=== PATIENT | female | born 1950 | race Caucasian/White ===

== ENCOUNTER 2022-06-12 15:25 | Inpatient (IN) | payer OTHER ==
[2022-06-12 16:39] VITALS: BMI 18.1
[2022-06-12 18:40] LABS: VENOUS BASE EXCESS 4.8 mmol/L (-2-2); VENOUS O2 SATURATION 82.8 % (70-80); VENOUS PCO2 42.6 mmHg (38-52); VENOUS PH 7.456 (7.310-7.410)
[2022-06-12 18:53] LABS: BASO % 0.2 % (0-2.0); EOS % 0.3 % (0-4.5); HEMATOCRIT 33.3 % (32.4-45.2); HEMOGLOBIN 10.9 GM/dL (10.7-15.3); LYMPH % 5.7 % (8-40); MCH 29.2 pg (25.7-33.7); MCHC 32.7 g/dl (32.0-36.0); MEAN CELL VOLUME 89.4 fl (80-96); MEAN PLT VOLUME 8.7 fl (7.5-11.1); MONO % 5.5 % (3.8-10.2); NEUT % 88.3 % (42.8-82.8); PLATELET COUNT 330 10^3/uL (134-434); RBC 3.72 M/mm3 (3.60-5.2); RDW 15.7 % (11.6-15.6); WHITE BLOOD COUNT 16.3 K/mm3 (4.0-10.0)
[2022-06-12 18:59] LABS: INR 1.2 (0.83-1.09); PROTHROMBIN TIME (PATIENT) 13.8 SEC (9.7-13.0)
[2022-06-12 19:02] LABS: ACTIVATED PTT 27.2 SECONDS (25.2-36.5)
[2022-06-12 19:13] LABS: CALCIUM 9.5 mg/dL (8.5-10.1)
[2022-06-12 19:14] LABS: ALBUMIN 1.7 g/dl (3.4-5.0); BLOOD UREA NITROGEN 18.8 mg/dL (7-18)
[2022-06-12 19:17] LABS: BILIRUBIN,TOTAL 0.3 mg/dL (0.2-1); CREATININE 0.3 mg/dL (0.55-1.3)
[2022-06-12] MEDS ORDERED: LACTATED RINGERS SOLUTION 1000 ML INFUS.BAG IV ONE (19:17)
[2022-06-12] MEDS ORDERED: ACETAMINOPHEN 1000 MG/100 ML BAG IVPB ONE (19:17)
[2022-06-12 19:19] LABS: TOT PROT 6.3 g/dl (6.4-8.2)
[2022-06-12] MEDS ORDERED: VANCOMYCIN 1 GM in D5W (PRE-DOCKED) 1,000 MG/250 ML IVPB ONE (19:29)
[2022-06-12 19:30] LABS: ANISOCYTOSIS 2+; MACROCYTOSIS 0
[2022-06-12] MEDS ORDERED: CEFEPIME HCL/D5W 1 GM/50 ML BAG IVPB ONE (19:30)
[2022-06-12 19:53] LABS: LACTIC ACID 2.4 mmol/L (0.4-2.0)
[2022-06-12] MEDS ORDERED: ACETAMINOPHEN INJECTION 100 ML IVPB ONE (20:16)
[2022-06-12] MEDS ORDERED: VANCOMYCIN/WATER FOR INJ (PEG) 1,000 MG/200 ML BAG IVPB ONE (20:50)
[2022-06-12] MEDS ORDERED: CEFEPIME 1 GM/100 ML BAG IVPB ONE (20:51)
[2022-06-13] MEDS ORDERED: VANCOMYCIN/WATER FOR INJ (PEG) 1,000 MG/200 ML BAG IVPB SCH ×2 (01:00→08:00)
[2022-06-13] MEDS: SODIUM CHLORIDE 1,000 ML IV SCH ×2 (02:30→13:34)
[2022-06-13] MEDS ORDERED: MEROPENEM 1 GM VIAL (RESTRICTED TO ID) IVPB ONE (05:43)
[2022-06-13] MEDS: MEROPENEM 1 GM in DEXTROSE 5%-WATER 100 ML IVPB SCH ×3 (05:59→17:37)
[2022-06-13 07:36] LABS: HEMATOCRIT 33.3 % (32.4-45.2); MCH 29.5 pg (25.7-33.7); MCHC 33.1 g/dl (32.0-36.0); MEAN CELL VOLUME 89.2 fl (80-96); MEAN PLT VOLUME 8.4 fl (7.5-11.1); PLATELET COUNT 318 10^3/uL (134-434); RBC 3.73 M/mm3 (3.60-5.2); RDW 15.7 % (11.6-15.6)
[2022-06-13 07:45] LABS: CHLORIDE 102 mmol/L (98-107); SODIUM 139 mmol/L (136-145)
[2022-06-13 07:48] LABS: CALCIUM 9.5 mg/dL (8.5-10.1)
[2022-06-13 07:49] LABS: ALBUMIN 1.6 g/dl (3.4-5.0); ANION GAP 6 MMOL/L (8-16); BLOOD UREA NITROGEN 14.4 mg/dL (7-18); CO2 31 mmol/L (21-32); GLUCOSE,RANDOM 115 mg/dL (74-106); MAGNESIUM 2.2 mg/dL (1.8-2.4)
[2022-06-13 07:51] LABS: SGPT/ALT 50 U/L (13-61)
[2022-06-13 07:52] LABS: CREATININE < 0.2 mg/dL (0.55-1.3); PHOSPHOROUS 5.3 mg/dL (2.5-4.9); SGOT/AST 49 U/L (15-37)
[2022-06-13 07:53] LABS: BILIRUBIN,TOTAL 0.4 mg/dL (0.2-1); TOT PROT 5.9 g/dl (6.4-8.2)
[2022-06-13 07:55] LABS: ALK PHOS 201 U/L (45-117)
[2022-06-13] MEDS ORDERED: VANCOMYCIN/WATER FOR INJ (PEG) 1,000 MG/200 ML BAG IVPB ONE (08:12)
[2022-06-13 08:35] LABS: EPI CELLS 31 /uL (0-25.1); HYALINE CASTS 1 /uL (0-3.1); URINE APPEARANCE CLEAR; URINE BACTERIA 195 /uL (0-1359); URINE BILIRUBIN NEGATIVE (NEGATIVE); URINE COLOR YELLOW; URINE GLUCOSE (UA) NEGATIVE (NEGATIVE); URINE KETONE NEGATIVE (NEGATIVE); URINE LEUK ESTERASE 1+ (NEGATIVE); URINE NITRITE NEGATIVE (NEGATIVE); URINE PROTEIN NEGATIVE (NEGATIVE); URINE RBC 11 /uL (0-23.9); URINE UROBILINOGEN 0.2 mg/dL (0.2-1.0); URINE WBC 43 /uL (0-25.8)
[2022-06-13 09:26] LABS: ANISOCYTOSIS 0; HELMET CELLS 0; HOWELL-JOLLY BODIES 0; MACROCYTOSIS 0; OVALOCYTE 0; ROULEAU 0; SICKELED CELLS 0; TARGET CELLS 0; TEAR DROP CELLS 0; TOXIC GRANULATION 0
[2022-06-13] MEDS ORDERED: levETIRAcetam 500 MG TABLET (FP) PO SCH (10:00)
[2022-06-13] MEDS ORDERED: DOCUSATE SODIUM 100 MG CAPSULE (FP) PO SCH (10:00)
[2022-06-13] MEDS ORDERED: [UNRECOGNIZED DRUG - OTHER] GT SCH (10:00)
[2022-06-13] MEDS: SENNOSIDES 8.8 MG/5 ML BULK BOTTLE GT SCH ×2 (10:23→21:43)
[2022-06-13] MEDS ORDERED: FAMOTIDINE 20 MG TABLET ONE (10:25)
[2022-06-13] MEDS ORDERED: levETIRAcetam 500 MG TABLET (FP) PO ONE (10:25)
[2022-06-13] MEDS ORDERED: ASCORBIC ACID 500 MG TABLET (FP) ONE (10:26)
[2022-06-13] MEDS ORDERED: ENOXAPARIN NA (PORCINE) 40 MG/0.4 ML DISP.SYRIN SQ ONE (10:26)
[2022-06-13] MEDS: FAMOTIDINE 20 MG TABLET PEG SCH ×2 (10:29→21:43)
[2022-06-13] MEDS: ENOXAPARIN NA (PORCINE) 40 MG/0.4 ML DISP.SYRIN SQ SCH (10:29)
[2022-06-13] MEDS: ASCORBIC ACID 500 MG TABLET (FP) GT SCH (10:30)
[2022-06-13] MEDS ORDERED: ACETAMINOPHEN 1000 MG/100 ML BAG IVPB ONE ×2 (12:00→13:30)
[2022-06-13] MEDS: CYANOCOBALAMIN 1,000 MCG TABLET (FP) GT SCH (13:25)
[2022-06-13] MEDS: LACTOBACILLUS ACIDOPHILUS 1 TABLET GT SCH (13:36)
[2022-06-13] MEDS: VANCOMYCIN/WATER FOR INJ (PEG) 1,000 MG/200 ML BAG IVPB SCH (20:42)
[2022-06-13] MEDS ORDERED: ZINC SULFATE 220 MG CAPSULE (FP) PO ONE (21:00)
[2022-06-13] MEDS: DOCUSATE NA 100 MG/10 ML UNIT-DOSE CUPS PO SCH (21:43)
[2022-06-14] MEDS: SODIUM CHLORIDE 1,000 ML IV SCH ×2 (01:12→15:27)
[2022-06-14] MEDS: MEROPENEM 1 GM in DEXTROSE 5%-WATER 100 ML IVPB SCH ×3 (01:13→18:51)
[2022-06-14] MEDS: AMINO ACIDS/PROTEIN HYDROLYS 30 ML LIQUID.PKT PO SCH (08:59)
[2022-06-14] MEDS: VANCOMYCIN/WATER FOR INJ (PEG) 1,000 MG/200 ML BAG IVPB SCH ×2 (08:59→21:07)
[2022-06-14] MEDS: MULTIVITAMINS (DAILY MVI) TABLET (FP) PO SCH (09:05)
[2022-06-14] MEDS: LACTOBACILLUS ACIDOPHILUS 1 TABLET GT SCH (09:05)
[2022-06-14] MEDS: FAMOTIDINE 20 MG TABLET PEG SCH ×2 (09:05→21:06)
[2022-06-14] MEDS: ASCORBIC ACID 500 MG TABLET (FP) GT SCH (09:05)
[2022-06-14] MEDS: DOCUSATE NA 100 MG/10 ML UNIT-DOSE CUPS PO SCH ×2 (09:06→21:06)
[2022-06-14] MEDS: SENNOSIDES 8.8 MG/5 ML BULK BOTTLE GT SCH ×2 (09:06→21:06)
[2022-06-14] MEDS: ENOXAPARIN NA (PORCINE) 40 MG/0.4 ML DISP.SYRIN SQ SCH (09:06)
[2022-06-14] MEDS: levETIRAcetam 500 MG/5 ML ORAL SOLUTION (UNIT-DOSE CUPS) PO SCH (09:06)
[2022-06-14] MEDS: CYANOCOBALAMIN 1,000 MCG TABLET (FP) GT SCH (09:08)
[2022-06-14 11:33] LABS: HEMATOCRIT 30.5 % (32.4-45.2); HEMOGLOBIN 9.8 GM/dL (10.7-15.3); MCH 28.9 pg (25.7-33.7); MCHC 32.2 g/dl (32.0-36.0); MEAN CELL VOLUME 89.8 fl (80-96); MEAN PLT VOLUME 8.5 fl (7.5-11.1); PLATELET COUNT 325 10^3/uL (134-434); RBC 3.39 M/mm3 (3.60-5.2); RDW 15.7 % (11.6-15.6); WHITE BLOOD COUNT 11.7 K/mm3 (4.0-10.0)
[2022-06-14 11:53] LABS: CALCIUM 8.9 mg/dL (8.5-10.1)
[2022-06-14 11:54] LABS: ALBUMIN 1.4 g/dl (3.4-5.0)
[2022-06-14 11:57] LABS: CREATININE 0.2 mg/dL (0.55-1.3)
[2022-06-14 11:58] LABS: BILIRUBIN,TOTAL 0.5 mg/dL (0.2-1); TOT PROT 5.4 g/dl (6.4-8.2)
[2022-06-14] MEDS ORDERED: ACETAMINOPHEN 1000 MG/100 ML BAG IVPB ONE (15:27)
[2022-06-15] MEDS: MEROPENEM 1 GM in DEXTROSE 5%-WATER 100 ML IVPB SCH ×3 (01:23→18:26)
[2022-06-15] MEDS: SODIUM CHLORIDE 1,000 ML IV SCH ×3 (01:24→16:15)
[2022-06-15] MEDS ORDERED: ACETAMINOPHEN 1000 MG/100 ML BAG IVPB ONE (08:15)
[2022-06-15] MEDS: AMINO ACIDS/PROTEIN HYDROLYS 30 ML LIQUID.PKT PO SCH (09:22)
[2022-06-15 10:34] LABS: HEMATOCRIT 28.7 % (32.4-45.2); HEMOGLOBIN 9.4 GM/dL (10.7-15.3); MCH 29.6 pg (25.7-33.7); MCHC 32.9 g/dl (32.0-36.0); MEAN CELL VOLUME 89.9 fl (80-96); MEAN PLT VOLUME 7.7 fl (7.5-11.1); PLATELET COUNT 308 10^3/uL (134-434); RBC 3.19 M/mm3 (3.60-5.2); WHITE BLOOD COUNT 13.9 K/mm3 (4.0-10.0)
[2022-06-15 11:05] LABS: CHLORIDE 104 mmol/L (98-107); SODIUM 141 mmol/L (136-145)
[2022-06-15 11:12] LABS: ALBUMIN 1.4 g/dl (3.4-5.0); BLOOD UREA NITROGEN 12.1 mg/dL (7-18); CALCIUM 8.5 mg/dL (8.5-10.1); CO2 27 mmol/L (21-32); GLUCOSE,RANDOM 131 mg/dL (74-106)
[2022-06-15 11:15] LABS: CREATININE 0.3 mg/dL (0.55-1.3); SGPT/ALT 30 U/L (13-61)
[2022-06-15 11:16] LABS: SGOT/AST 38 U/L (15-37)
[2022-06-15 11:17] LABS: BILIRUBIN,TOTAL 0.2 mg/dL (0.2-1); TOT PROT 5.2 g/dl (6.4-8.2)
[2022-06-15 11:18] LABS: ALK PHOS 169 U/L (45-117)
[2022-06-15 11:20] LABS: ANION GAP 10 MMOL/L (8-16)
[2022-06-15] MEDS: DOCUSATE NA 100 MG/10 ML UNIT-DOSE CUPS PO SCH ×2 (11:36→11:42)
[2022-06-15] MEDS: ENOXAPARIN NA (PORCINE) 40 MG/0.4 ML DISP.SYRIN SQ SCH (11:37)
[2022-06-15] MEDS: POTASSIUM CHLORIDE ORAL LIQUID 20 MEQ/15 ML GT SCH (11:37)
[2022-06-15] MEDS: MULTIVITAMINS (DAILY MVI) TABLET (FP) PO SCH (11:38)
[2022-06-15] MEDS: FAMOTIDINE 20 MG TABLET PEG SCH ×2 (11:38→21:01)
[2022-06-15] MEDS: LACTOBACILLUS ACIDOPHILUS 1 TABLET GT SCH (11:38)
[2022-06-15] MEDS: levETIRAcetam 500 MG/5 ML ORAL SOLUTION (UNIT-DOSE CUPS) PO SCH (11:43)
[2022-06-15] MEDS: ASCORBIC ACID 500 MG TABLET (FP) GT SCH (11:43)
[2022-06-15] MEDS: SENNOSIDES 8.8 MG/5 ML BULK BOTTLE GT SCH ×2 (11:43→21:27)
[2022-06-15] MEDS: VANCOMYCIN/WATER FOR INJ (PEG) 1,000 MG/200 ML BAG IVPB SCH ×2 (12:22→19:51)
[2022-06-15] MEDS: CYANOCOBALAMIN 1,000 MCG TABLET (FP) GT SCH (12:22)
[2022-06-15] MEDS ORDERED: POTASSIUM CHLORIDE ORAL LIQUID 20 MEQ/15 ML PO ONE (12:57)
[2022-06-15] MEDS ORDERED: POTASSIUM CHLORIDE ORAL LIQUID 20 MEQ/15 ML GT ONE ×2 (13:03→16:54)
[2022-06-15] MEDS: KCL 10 MEQ IVPB 10 MEQ/100 ML INFUS.BAG IVPB SCH ×3 (13:52→16:07)
[2022-06-15 16:45] LABS: CHLORIDE 113 mmol/L (98-107); SODIUM 143 mmol/L (136-145)
[2022-06-15 16:48] LABS: ANION GAP 9 MMOL/L (8-16); BLOOD UREA NITROGEN 9.3 mg/dL (7-18); CO2 22 mmol/L (21-32); GLUCOSE,RANDOM 94 mg/dL (74-106); MAGNESIUM 1.7 mg/dL (1.8-2.4)
[2022-06-15 17:01] LABS: CALCIUM 7.1 mg/dL (8.5-10.1); CREATININE < 0.2 mg/dL (0.55-1.3)
[2022-06-15] MEDS ORDERED: MAGNESIUM SULF 50% (8.12 MEQ/2 ML-1 GM VIAL) IVPB ONE (18:07)
[2022-06-15] MEDS: ACETAMINOPHEN 650 MG/20.3 ML ORAL SOLUTION (CUPS) GT PRN (21:00)
[2022-06-15] MEDS: DOCUSATE NA 100 MG/10 ML UNIT-DOSE CUPS GT SCH (21:27)
[2022-06-16] MEDS: MEROPENEM 1 GM in DEXTROSE 5%-WATER 100 ML IVPB SCH ×2 (02:07→09:30)
[2022-06-16] MEDS: ACETAMINOPHEN 650 MG/20.3 ML ORAL SOLUTION (CUPS) GT PRN ×2 (03:42→21:31)
[2022-06-16] MEDS: SENNOSIDES 8.8 MG/5 ML BULK BOTTLE GT SCH ×2 (09:25→21:24)
[2022-06-16] MEDS: DOCUSATE NA 100 MG/10 ML UNIT-DOSE CUPS GT SCH ×2 (09:26→21:24)
[2022-06-16] MEDS: levETIRAcetam 500 MG/5 ML ORAL SOLUTION (UNIT-DOSE CUPS) GT SCH (09:26)
[2022-06-16] MEDS: MULTIVITAMINS (DAILY MVI) TABLET (FP) PO SCH (09:27)
[2022-06-16] MEDS: AMINO ACIDS/PROTEIN HYDROLYS 30 ML LIQUID.PKT GT SCH (09:27)
[2022-06-16] MEDS: ASCORBIC ACID 500 MG TABLET (FP) GT SCH (09:27)
[2022-06-16] MEDS: FAMOTIDINE 20 MG TABLET PEG SCH ×2 (09:27→21:32)
[2022-06-16] MEDS: LACTOBACILLUS ACIDOPHILUS 1 TABLET GT SCH (09:27)
[2022-06-16] MEDS: VANCOMYCIN/WATER FOR INJ (PEG) 1,000 MG/200 ML BAG IVPB SCH ×2 (09:30→21:23)
[2022-06-16] MEDS ORDERED: COLLAGENASE CLOSTRIDIUM HIST. 30 GRAMS TUBE TP SCH (10:00)
[2022-06-16] MEDS: COLLAGENASE CLOSTRIDIUM HIST. 30 GRAMS TUBE TP SCH (10:00)
[2022-06-16] MEDS: POTASSIUM CHLORIDE ORAL LIQUID 20 MEQ/15 ML GT SCH (10:00)
[2022-06-16] MEDS: CYANOCOBALAMIN 1,000 MCG TABLET (FP) GT SCH (10:00)
[2022-06-16 10:55] LABS: HEMATOCRIT 27.6 % (32.4-45.2); HEMOGLOBIN 9.2 GM/dL (10.7-15.3); MCH 29.8 pg (25.7-33.7); MCHC 33.3 g/dl (32.0-36.0); MEAN CELL VOLUME 89.5 fl (80-96); MEAN PLT VOLUME 7.6 fl (7.5-11.1); PLATELET COUNT 300 10^3/uL (134-434); RBC 3.08 M/mm3 (3.60-5.2); RDW 15.7 % (11.6-15.6); WHITE BLOOD COUNT 13.9 K/mm3 (4.0-10.0)
[2022-06-16 11:11] LABS: ALBUMIN 1.2 g/dl (3.4-5.0); BLOOD UREA NITROGEN 8.8 mg/dL (7-18); MAGNESIUM 1.9 mg/dL (1.8-2.4)
[2022-06-16 11:14] LABS: CREATININE 0.2 mg/dL (0.55-1.3)
[2022-06-16 11:15] LABS: BILIRUBIN,TOTAL 0.2 mg/dL (0.2-1); TOT PROT 4.9 g/dl (6.4-8.2)
[2022-06-16 11:17] LABS: LACTIC ACID 3.3 mmol/L (0.4-2.0)
[2022-06-16 11:17] LABS: CALCIUM 8.4 mg/dL (8.5-10.1)
[2022-06-16] MEDS ORDERED: SODIUM CHLORIDE 1,000 ML IV STA ×2 (14:04→16:10)
[2022-06-16] MEDS ORDERED: POTASSIUM CHLORIDE ORAL LIQUID 20 MEQ/15 ML PO ONE (14:30)
[2022-06-16] MEDS ORDERED: POTASSIUM CHLORIDE ORAL LIQUID 20 MEQ/15 ML GT ONE (15:45)
[2022-06-16] MEDS: CEFEPIME 2 GM in DEXTROSE 5%-WATER 100 ML IVPB SCH ×2 (15:51→18:09)
[2022-06-16] MEDS: SODIUM CHLORIDE 1,000 ML IV SCH (15:52)
[2022-06-16] MEDS ORDERED: SODIUM CHLORIDE 1,000 ML IV SCH ×2 (16:10→18:57)
[2022-06-16] MEDS ORDERED: KETOROLAC TROMETHAMINE 15 MG/ML VIAL IVPUSH ONE (17:04)
[2022-06-17] MEDS: CEFEPIME 2 GM in DEXTROSE 5%-WATER 100 ML IVPB SCH ×3 (01:55→16:59)
[2022-06-17] MEDS: ACETAMINOPHEN 650 MG/20.3 ML ORAL SOLUTION (CUPS) GT PRN (06:25)
[2022-06-17] MEDS ORDERED: POTASSIUM CHLORIDE ORAL LIQUID 20 MEQ/15 ML GT ONE (06:54)
[2022-06-17] MEDS: AMINO ACIDS/PROTEIN HYDROLYS 30 ML LIQUID.PKT GT SCH (07:47)
[2022-06-17] MEDS: VANCOMYCIN/WATER FOR INJ (PEG) 1,000 MG/200 ML BAG IVPB SCH ×2 (07:47→20:30)
[2022-06-17] MEDS ORDERED: SODIUM CHLORIDE 1,000 ML IV SCH (09:00)
[2022-06-17] MEDS ORDERED: KETOROLAC TROMETHAMINE 15 MG/ML VIAL IVPUSH ONE (09:00)
[2022-06-17] MEDS: DOCUSATE NA 100 MG/10 ML UNIT-DOSE CUPS GT SCH ×2 (09:02→21:28)
[2022-06-17] MEDS ORDERED: ACETAMINOPHEN 1000 MG/100 ML BAG IVPB ONE (09:02)
[2022-06-17] MEDS: ASCORBIC ACID 500 MG TABLET (FP) GT SCH (09:07)
[2022-06-17] MEDS: levETIRAcetam 500 MG/5 ML ORAL SOLUTION (UNIT-DOSE CUPS) GT SCH (09:07)
[2022-06-17] MEDS: FAMOTIDINE 20 MG TABLET PEG SCH ×2 (09:07→21:28)
[2022-06-17] MEDS: POTASSIUM CHLORIDE ORAL LIQUID 20 MEQ/15 ML GT SCH (09:08)
[2022-06-17] MEDS: MULTIVITAMINS (DAILY MVI) TABLET (FP) PO SCH (09:08)
[2022-06-17] MEDS: LACTOBACILLUS ACIDOPHILUS 1 TABLET GT SCH (09:08)
[2022-06-17] MEDS: SENNOSIDES 8.8 MG/5 ML BULK BOTTLE GT SCH ×2 (09:08→21:29)
[2022-06-17] MEDS: CYANOCOBALAMIN 1,000 MCG TABLET (FP) GT SCH (09:08)
[2022-06-17] MEDS: COLLAGENASE CLOSTRIDIUM HIST. 30 GRAMS TUBE TP SCH (10:13)
[2022-06-17 10:28] LABS: HEMATOCRIT 28.2 % (32.4-45.2); HEMOGLOBIN 9.4 GM/dL (10.7-15.3); MCH 29.1 pg (25.7-33.7); MCHC 33.2 g/dl (32.0-36.0); MEAN CELL VOLUME 87.7 fl (80-96); MEAN PLT VOLUME 7.7 fl (7.5-11.1); PLATELET COUNT 304 10^3/uL (134-434); RBC 3.21 M/mm3 (3.60-5.2); RDW 15.8 % (11.6-15.6); WHITE BLOOD COUNT 8.2 K/mm3 (4.0-10.0)
[2022-06-17 11:00] LABS: ALBUMIN 1.2 g/dl (3.4-5.0); BLOOD UREA NITROGEN 9.1 mg/dL (7-18); CALCIUM 7.7 mg/dL (8.5-10.1); CREATININE 0.2 mg/dL (0.55-1.3)
[2022-06-17 11:03] LABS: BILIRUBIN,TOTAL 0.3 mg/dL (0.2-1)
[2022-06-17] MEDS ORDERED: LACTATED RINGERS SOLUTION 1000 ML INFUS.BAG IV ONE (13:12)
[2022-06-17] MEDS ORDERED: LORazepam 2 MG/ML SDV VIAL IVPUSH ONE ×2 (17:36→17:43)
[2022-06-17] MEDS ORDERED: PHENYLEPHRINE HCL 10 MG/1 ML SINGLE DOSE VIAL ONE (21:25)
[2022-06-17] MEDS: ACETAMINOPHEN 650 MG/20.3 ML ORAL SOLUTION (CUPS) PEG PRN (23:05)
[2022-06-18] MEDS ORDERED: LACTATED RINGERS SOLUTION 1000 ML INFUS.BAG IV ONE ×2 (00:45→07:13)
[2022-06-18] MEDS: CEFEPIME 2 GM in DEXTROSE 5%-WATER 100 ML IVPB SCH ×3 (01:56→17:41)
[2022-06-18] MEDS: ACETAMINOPHEN 650 MG/20.3 ML ORAL SOLUTION (CUPS) PEG PRN ×3 (05:29→21:01)
[2022-06-18] MEDS: VANCOMYCIN/WATER FOR INJ (PEG) 1,000 MG/200 ML BAG IVPB SCH ×2 (09:15→20:18)
[2022-06-18] MEDS: AMINO ACIDS/PROTEIN HYDROLYS 30 ML LIQUID.PKT GT SCH (09:15)
[2022-06-18] MEDS: levETIRAcetam 500 MG/5 ML ORAL SOLUTION (UNIT-DOSE CUPS) GT SCH (09:18)
[2022-06-18] MEDS: DOCUSATE NA 100 MG/10 ML UNIT-DOSE CUPS GT SCH ×2 (09:18→21:01)
[2022-06-18] MEDS: FAMOTIDINE 20 MG TABLET PEG SCH ×2 (09:19→21:01)
[2022-06-18] MEDS: MULTIVITAMINS (DAILY MVI) TABLET (FP) PO SCH (09:19)
[2022-06-18] MEDS: POTASSIUM CHLORIDE ORAL LIQUID 20 MEQ/15 ML GT SCH (09:19)
[2022-06-18] MEDS: ASCORBIC ACID 500 MG TABLET (FP) GT SCH (09:19)
[2022-06-18] MEDS: LACTOBACILLUS ACIDOPHILUS 1 TABLET GT SCH (09:20)
[2022-06-18] MEDS: SENNOSIDES 8.8 MG/5 ML BULK BOTTLE GT SCH ×2 (09:20→21:01)
[2022-06-18] MEDS: CYANOCOBALAMIN 1,000 MCG TABLET (FP) GT SCH (09:20)
[2022-06-18] MEDS: COLLAGENASE CLOSTRIDIUM HIST. 30 GRAMS TUBE TP SCH (09:20)
[2022-06-18 13:02] LABS: CALCIUM 8.5 mg/dL (8.5-10.1)
[2022-06-18 13:04] LABS: ALBUMIN 1.3 g/dl (3.4-5.0); BLOOD UREA NITROGEN 12.9 mg/dL (7-18); MAGNESIUM 1.7 mg/dL (1.8-2.4)
[2022-06-18 13:06] LABS: CREATININE 0.2 mg/dL (0.55-1.3); PHOSPHOROUS 2.2 mg/dL (2.5-4.9)
[2022-06-18 13:07] LABS: BILIRUBIN,TOTAL 0.2 mg/dL (0.2-1)
[2022-06-18 13:09] LABS: TOT PROT 5.6 g/dl (6.4-8.2)
[2022-06-18] MEDS ORDERED: MAGNESIUM SULF 50% (8.12 MEQ/2 ML-1 GM VIAL) IVPB ONE (14:38)
[2022-06-18] MEDS ORDERED: POTASSIUM PHOSPHATE 30 MM in DEXTROSE 5%-WATER - 250 ML IVPB ONE (15:30)
[2022-06-18] MEDS: KCL 10 MEQ IVPB 10 MEQ/100 ML INFUS.BAG IVPB SCH ×3 (16:55→17:41)
[2022-06-18 20:35] VITALS: RESP 19
[2022-06-18 23:54] VITALS: BP 96/59; PULSE 109; TEMP 99.5
== END 2022-06-19 | disposition short-term general hospital (02) | DRG 871 ==
LOC: JER 15:25 → JERBED 19:23 → J6S 06-13 10:55 → JICU 06-17 13:29
PROVIDERS: ADMIT Internal Medicine; ATTEND Internal Medicine Pulmonary Disease
PROC: 05HM33Z Insertion of Infusion Device into Right Internal Jugular Vein, Percutaneous Approach (ICD-10-PCS; principal; 2022-06-17)
PROC: B543ZZA Ultrasonography of Right Jugular Veins, Guidance (ICD-10-PCS; 2022-06-17)
DX: A41.89 Other specified sepsis (principal); G93.41 Metabolic encephalopathy; J96.21 Acute and chronic respiratory failure with hypoxia; J98.11 Atelectasis; E87.20 Acidosis, unspecified; G91.0 Communicating hydrocephalus; I69.354 Hemiplegia and hemiparesis following cerebral infarction affecting left non-dominant side; R00.0 Tachycardia, unspecified; I10 Essential (primary) hypertension; D72.829 Elevated white blood cell count, unspecified; K59.00 Constipation, unspecified; G40.909 Epilepsy, unspecified, not intractable, without status epilepticus; E87.6 Hypokalemia; R13.10 Dysphagia, unspecified; L89.150 Pressure ulcer of sacral region, unstageable; Z88.0 Allergy status to penicillin; Z93.0 Tracheostomy status; Z93.1 Gastrostomy status
CPT/HCPCS: 0241U-QW; 36415; 70260-TC-FY; 70360-TC-FY; 70450-TC; 71045-TC-FY; 71260-TC; 74018-TC-FY; 74177-TC; 80048; 80053; 81003; 82803; 82962; 83605; 83735; 84100; 84132; 84484; 85025; 85027; 85610; 85730; 86850; 86900; 86901; 87040; 87086; 87324; 87449; 87493; 93005; 93010; 99285-25; C9803-CS; G0480; Q9967; U0003; U0005